=== PATIENT | male | born 1945 | race Caucasian/White ===

== ENCOUNTER → 2016-11-24 | Outpatient (CLI) | payer MEDICARE, OTHER ==
--- NOTE | 2016-11-24 11:12 | RAD ---
CT of the chest without contrast, 11/24/2016: History: Nodule in the lung on chest radiograph Noncontrast scans were obtained as requested. No previous studies are available at this time for comparison purposes. There is moderate calcific plaquing of the thoracic aorta without evidence of aneurysm. A few scattered coronary artery calcifications are noted. The heart is not enlarged. Several small mediastinal lymph nodes are seen without evidence of pathologic enlargement. There is a small hiatal hernia. There is a small nonspecific nodule in the right lobe of the thyroid gland. There is a 3 mm noncalcified nodule in the lateral aspect of the left lower lobe as seen on image 233 of series #5. There is a calcified granuloma in the superior segment of the left lower lobe. There is a tiny noncalcified 2 mm peripheral nodule in the lateral aspect of the right upper lobe as seen on image 262 of series #5. There are 2 additional tiny 2 mm nodules in the lateral aspect of the right upper lobe as seen on image 127 of series #5. Several other very tiny noncalcified nodular opacities are seen in the lungs such as in the left upper lobe on images 94 and 90 of series #5. There are a few scattered linear opacities in both lungs compatible with scarring. There is a mild left apical pleural-parenchymal opacity compatible with scarring. No pulmonary mass or significant consolidation is seen. There is no evidence of pleural fluid. The visualized portion of the upper abdomen demonstrates a 1 cm low-density left adrenal nodule compatible with a benign adenoma. Several old healed rib fractures are present laterally on the right. IMPRESSION: 1. Several tiny noncalcified pulmonary nodules are noted bilaterally as described above. The utility of CT follow-up should be based on the patient's risk factors. 2. Mild bilateral pleural/parenchymal scarring. 3. Mild coronary artery calcification. PQRS Compliance Statement: One or more of the following individualized dose reduction techniques were utilized for this examination: 1. Automated exposure control 2. Adjustment of the mA and/or kV according to patient size 3. Use of iterative reconstruction technique
== END | disposition home or self-care (01) ==
LOC: CT 07:35
PROVIDERS: ATTEND Internal Medicine Pulmonary Disease
DX: J98.4 Other disorders of lung (principal); I25.10 Atherosclerotic heart disease of native coronary artery without angina pectoris; R91.8 Other nonspecific abnormal finding of lung field
CPT/HCPCS: 71250

== ENCOUNTER → 2017-11-30 | Outpatient (CLI) | payer MEDICARE ==
--- NOTE | 2017-11-30 16:34 | RAD ---
CT of the chest without contrast, 11/30/2017: History: Follow-up pulmonary nodules Noncontrast scans were obtained and compared to a study from 11/24/2016. There is moderate calcific plaquing of the thoracic aorta without evidence of aneurysm. Minimal scattered coronary artery calcifications are noted. No mediastinal adenopathy is evident. A small low density nodule is again noted in the right lobe of the thyroid gland, similar to that seen on the previous study. A 3 mm noncalcified nodule in the lateral aspect of the left lower lobe as seen on image 172 of series #5 is unchanged. There is a calcified granuloma in the superior segment of the left lower lobe. Three tiny right upper lobe nodules are unchanged. 2 of these are visible on image 104 of series #5. Both nodules measure approximately 2 mm. A couple of very faint left upper lobe nodule seen on images 75 and 73 of series #5 are unchanged. There is mild bilateral apical scarring. There are a few other scattered linear parenchymal scars in both lungs. No pulmonary mass or significant infiltrate is seen. There is no evidence of pleural fluid. IMPRESSION: 1. Unchanged tiny bilateral pulmonary nodules are probably granulomas and/or scars. 2. Small nonspecific thyroid nodule. 3. No new chest abnormality is detected. PQRS Compliance Statement: One or more of the following individualized dose reduction techniques were utilized for this examination: 1. Automated exposure control 2. Adjustment of the mA and/or kV according to patient size 3. Use of iterative reconstruction technique
== END | disposition home or self-care (01) ==
LOC: CT 13:30
PROVIDERS: ATTEND Internal Medicine Pulmonary Disease
DX: E04.1 Nontoxic single thyroid nodule (principal); I25.10 Atherosclerotic heart disease of native coronary artery without angina pectoris; R91.8 Other nonspecific abnormal finding of lung field
CPT/HCPCS: 71250